=== PATIENT | male | born 1995 | race Two or more races ===

== ENCOUNTER 2023-02-26 09:34 | Emergency (ER) | payer OTHER ==
[~2023-02-26] VITALS: Ht 182.9 cm; Wt 81.6 kg
== END 2023-02-26 16:05 | disposition home or self-care (01) ==
LOC: ER 09:35
DX: S71.112A Laceration without foreign body, left thigh, initial encounter (principal); W26.0XXA Contact with knife, initial encounter; Y93.89 Activity, other specified; Y92.89 Other specified places as the place of occurrence of the external cause; Y99.9 Unspecified external cause status

== ENCOUNTER 2023-03-05 09:17 | Emergency (ER) | payer OTHER ==
[~2023-03-05] VITALS: Ht 182.9 cm; Wt 89.4 kg
== END 2023-03-05 10:41 | disposition home or self-care (01) ==
LOC: ER 09:18
DX: Z48.02 Encounter for removal of sutures (principal)